=== PATIENT | female | born 1995 | race Caucasian/White ===

== ENCOUNTER 2016-11-09 00:19 | Emergency (ER) | payer OTHER ==
[~2016-11-09] VITALS: Ht 154.9 cm; Wt 40.8 kg
--- NOTE | 2016-11-09 01:34 | ED NECK/BACK PAIN COMPLAINT ---
History of Present Illness General Chief Complaint: Neck/Upper Back Pain/Injury Stated Complaint: NECK PAIN Source: patient Exam Limitations: no limitations Vital Signs & Intake/Output Vital Signs & Intake/Output Vital Signs Date Time Temp Pulse Resp B/P B/P Pulse O2 O2 Flow FiO2 Mean Ox Delivery Rate 11/09 0325 84 16 102/60 11/09 0032 99.8 98 18 100 Room Air Allergies Coded Allergies: No Known Drug Allergies (NKDA 11/09/16) Reconcile Medications No Known Home Medications Triage Note: PT TO ED C/O RT SIDE NECK PAIN SINCE FALLING WHILE DOING A HAND STAND AT 2 PM IN THE AFTERNOON. DENIES LOC. PAIN HAS GOTTEN WORSE. TOOK 400 MG ADVIL "HOURS AGO" WITH NO RELIEF. DENIES NUMBNESS/TINGELING TO HANDS OR FEET. PAIN ON PALPATION TO CERVICAL SPINE. C-COLLAR PLACED Triage Nurses Notes Reviewed? yes : No Patient currently breastfeeds: No HPI: Patient presents for evaluation of a right-sided neck pain after falling onto the right side of her neck while doing a handstand. The fall occurred at about 2:00 this afternoon. Patient had an abrupt onset of right neck pain, characterized as sharp, at that point. The pain has been more or less constant since the incident and gets worse with movement and palpation. Nothing seems to make the pain feel better. Past History Travel History Traveled to [place] past 21 day No Medical History Any Pertinent Medical History? see below for history Neurological: NONE EENT: NONE Cardiovascular: NONE Respiratory: NONE Gastrointestinal: NONE Hepatic: NONE Renal: NONE Musculoskeletal: NONE Psychiatric: NONE Endocrine: NONE Surgical History Surgical History: non-contributory Psychosocial History What is your primary language Kittitian Tobacco Use: Never used ETOH Use: denies use Illicit Drug Use: denies illicit drug use Family History Hx Contributory? No Review of Systems Review of Systems Constitutional: Reports: no symptoms. Eyes: Reports: no symptoms. Ears, Nose, Throat, Mouth: Reports: no symptoms. Respiratory: Reports: no symptoms. Cardiovascular: Reports: no symptoms. Gastrointestinal/Abdominal: Reports: no symptoms. Musculoskeletal: Reports: see HPI. Skin: Reports: no symptoms. Neurological/Psychological: Reports: no symptoms. All Other Systems: Reviewed and Negative Physical Exam Physical Exam Neck: SEE BELOW Comments: Gen.: Well-nourished, well-developed, no acute respiratory distress. Head: Normocephalic, atraumatic. Nontender. Eyes: Normal inspection bilaterally Ears: Normal inspection bilaterally Nose: Normal inspection, nasal cannula in place Throat/mouth : Moist mucosa Neck: C-collar in placed, tenderness over the right paraspinal musculature and over the upper cervical spine without associated ecchymoses or soft tissue swelling Lungs: Quiet respirations Back: Normal range of motion Extremities: Normal range of motion grossly Neurologic: Cranial nerves grossly intact, speech is clear Skin: warm and dry Psychiatric: Calm, cooperative, no apparent delusions or hallucinations Progress Differential Diagnosis: herniated disc, myofascial strain Plan of Care: Orders Procedure Date/time Status URINE 11/09 209 Complete Laboratory Tests 11/09/16 0205: Urine Test NEGATIVE Diagnostic Imaging: Discussed w/RAD: CT Scan. Radiology Impression: PATIENT: ROGELIO EDWARDS PRESENT AGE: 21 PATIENT ACCOUNT NO: [id number] : 96 LOCATION: [facility] ORDERING PHYSICIAN: JASSI VERA MD SERVICE DATE: 11/09/16 EXAM TYPE: CAT - CT CERV SPINE WO IV CONTRAST EXAMINATION: CT CERVICAL SPINE WITHOUT CONTRAST CLINICAL INFORMATION: Fall with neck pain COMPARISON: None TECHNIQUE: Multidetector helical imaging was performed through the cervical spine. Coronal and sagittal reformatted images were created. DLP: 338.99 mGy-cm FINDINGS: Assessment is slightly limited due to patient positioning. There is anatomic alignment of the vertebral bodies and posterior elements. Vertebral body heights and intervertebral disc spaces are maintained. No evidence of acute fracture. No prevertebral soft tissue swelling. Visualized portions of the lung apices are unremarkable. The thyroid gland is unremarkable. IMPRESSION: No acute findings identified. DICTATED BY: CHELSEA THEODORE MD DATE/TIME DICTATED:11/09/16446 CUTTING TOOL SHARPENER:WILLAM DATE/TIME TRANSCRIBED:11/09/16446 CONFIDENTIAL, DO NOT COPY WITHOUT APPROPRIATE AUTHORIZATION. <Electronically signed in Other Vendor System> SIGNED BY: CHELSEA THEODORE MD 11/09/16455 Departure Departure Disposition: HOME OR SELF CARE Condition: Stable Clinical Impression Primary Impression: Neck strain Qualifiers: Encounter type: initial encounter Qualified Code: S16.1XXA - Strain of muscle, fascia and tendon at neck level, initial encounter Referrals: PATIENT HAS NO PRIMARY CARE DR (PCP/Family) Additional Instructions: Ibuprofen 600 mg every 6 hours as needed for neck pain. Ice to any areas of swelling. Follow-up with your primary care physician in one week if not improving. Return if any concerns or sudden worsening. Please note that there might be incidental findings in your evaluation that are unrelated to the current emergency department visit. Please notify your primary care doctor about this emergency department visit in order to obtain and review all of the testing performed so that these incidental findings can be monitored as needed. If you had an x-ray performed, please understand that some fractures may not be seen on the initial set of x-rays. If your symptoms persist you might need a repeat set of x-rays to check for such a fracture. If you had a laceration evaluated, please understand that foreign bodies such as glass or wood may not be visible to the naked eye or on plain x-rays. If the wound becomes red, swollen, increasingly more painful or if there is any drainage from the wound, please have it reevaluated by a physician for the possibility of a retained foreign body. Thank you for choosing the [facility] Emergency [facility] for your care. It was a pleasure to serve you today. Jassi Vera M.D. [facility] Departure Forms: Customer Survey General Discharge Information Prescriptions: Current Visit Scripts No Known Home Medications
[2016-11-09 03:25] VITALS: BP 102/60
--- NOTE | 2016-11-09 03:39 | RADIOLOGY REPORT ---
EXAMINATION: XR CERVICAL SPINE CLINICAL INFORMATION: Fall from hand stand with upper neck pain/tenderness COMPARISON: None TECHNIQUE: 3 views of the cervical spine. FINDINGS: There is slight anterolisthesis of C4 on C5. Alignment otherwise appears maintained, although the lower cervical spine is not well seen in the lateral projection. Vertebral body heights and intervertebral disc spaces appear preserved, with no discrete fracture seen. No significant prevertebral soft tissue swelling. IMPRESSION: Slight anterolisthesis of C4 on C5. CT may be helpful for further evaluation, as well as for assessment of the lower cervical spine which is not well seen on the lateral view.
--- NOTE | 2016-11-09 04:56 | CT SCAN REPORT ---
EXAMINATION: CT CERVICAL SPINE WITHOUT CONTRAST CLINICAL INFORMATION: Fall with neck pain COMPARISON: None TECHNIQUE: Multidetector helical imaging was performed through the cervical spine. Coronal and sagittal reformatted images were created. DLP: 338.99 mGy-cm FINDINGS: Assessment is slightly limited due to patient positioning. There is anatomic alignment of the vertebral bodies and posterior elements. Vertebral body heights and intervertebral disc spaces are maintained. No evidence of acute fracture. No prevertebral soft tissue swelling. Visualized portions of the lung apices are unremarkable. The thyroid gland is unremarkable. IMPRESSION: No acute findings identified.
== END 2016-11-09 05:28 ==
LOC: ERH 00:19
DX: S16.1XXA Strain of muscle, fascia and tendon at neck level, initial encounter (principal); W19.XXXA Unspecified fall, initial encounter; Y92.9 Unspecified place or not applicable; Y93.9 Activity, unspecified
CPT/HCPCS: 72050; 81025